=== PATIENT | female | born 2000 | race Caucasian/White ===

== ENCOUNTER 2020-11-13 18:55 | Emergency (ER) | payer MEDICAID ==
[~2020-11-13] VITALS: Ht 157.5 cm; Wt 66.0 kg
[2020-11-13] MEDS ORDERED: SODIUM CHLORIDE 0.9% 1,000 ML IV ONE (20:15)
[2020-11-13] MEDS ORDERED: LORATADINE 10MG TABLET PO SCH (20:15)
[2020-11-13] MEDS ORDERED: DIPHENHYDRAMINE 50MG/ML VIAL IV ONE (20:15)
[2020-11-13] MEDS ORDERED: FAMOTIDINE 20MG/2ML VIAL IV ONE (20:15)
[2020-11-13 23:11] VITALS: BP 110/87
== END 2020-11-14 00:11 | disposition home or self-care (01) ==
LOC: ER 18:55
DX: L50.9 Urticaria, unspecified (principal); J45.909 Unspecified asthma, uncomplicated
CPT/HCPCS: 93005; 96361; 96374; 96375; 99284; J1200; J3490; J7030